=== PATIENT | female | born 1980 | race Caucasian/White ===

== ENCOUNTER → 2019-01-09 | Outpatient (CLI) | payer OTHER ==
--- NOTE | 2019-01-09 13:57 | Diagnostic Imaging Report ---
EXAM: CT right hand WITHOUT contrast INDICATION: Trapezium fracture. Hand pain. Trauma COMPARISON: None. TECHNIQUE: Right hand was scanned using a multi detector helical scanner without administration of IV contrast. Absence of intravenous contrast decreases sensitivity for detection of focal lesions and vascular pathology. Coronal and sagittal reformations were obtained. Routine protocol was performed. IV CONTRAST: None ORAL CONTRAST: Water COMPLICATIONS: None RADIATION DOSE: Total DLP: 138.95 mGy*cm Estimated effective dose: (DLP x 0.015 x size factor) mSv CTDIvol has been reviewed. It is below the limits set by the Radiation Protocol Committee (RPC). Dose modulation, iterative reconstruction, and/or weight based adjustment of the mA/kV was utilized to reduce the radiation dose to as low as reasonably achievable. FINDINGS: No acute fracture, dislocation or evidence of avascular necrosis. Specifically, no trapezium fracture is seen. Punctate calcification adjacent to the ulnar styloid best seen on axial image 150 could be due to old trauma. Chronic appearing deformity of the distal radius with what appear to be small degenerative cysts best seen on coronal image 28 through 30. Mild soft tissue swelling about the wrist. No radiopaque foreign body. No abnormal soft tissue mass is seen. Impression: No acute fracture, dislocation or evidence of avascular necrosis. Specifically, no trapezium fracture is seen. Signed by: Dr. Calvin Friend M.D. on 01/09/2019 1:54 PM
== END ==
LOC: CT 12:00
PROVIDERS: ATTEND Family Medicine
DX: M79.641 Pain in right hand (principal)

== ENCOUNTER → 2019-01-30 | Outpatient (CLI) | payer OTHER ==
--- NOTE | 2019-01-31 07:45 | Diagnostic Imaging Report ---
TECHNIQUE: Magnetic resonance imaging of the RIGHT HAND was performed WITHOUT injected contrast. HISTORY: Pain, box fell on hand, swelling, 3 weeks ago COMPARISON: CT of the right hand January 09, 2019 FINDINGS: BONES: No focal or infiltrative bone marrow replacing abnormalities identified. No acute fracture or osteonecrosis. JOINTS: No dislocation or joint effusion. SOFT TISSUES: Mild soft tissue edema involving the radial side of the hand, most notably the thenar eminence. No fluid collection. The visualized tendons and ligaments appear intact. IMPRESSION: 1. Evolving hand contusion. 2. No healing fracture or hematoma. Signed by: Dr. David Lanza D.O., M.M.M. on 01/31/2019 7:41 AM
== END ==
LOC: MRI 07:59
PROVIDERS: ATTEND Family Medicine
DX: M79.641 Pain in right hand (principal)